=== PATIENT | male | born 1945 | race Caucasian/White ===

== ENCOUNTER 2023-01-16 08:02 | Day surgery (SDC) | payer MEDICARE ==
[2023-01-16 11:55] VITALS: BP 167/97
== END 2023-01-16 11:30 | disposition home or self-care (01) ==
LOC: RAD 08:02
PROVIDERS: ATTEND Neurological Surgery
PROC: 009U3ZX Drainage of Spinal Canal, Percutaneous Approach, Diagnostic (ICD-10-PCS; principal; 2023-01-16)
PROC: B01BZZZ Fluoroscopy of Spinal Cord (ICD-10-PCS; 2023-01-16)
DX: G91.2 (Idiopathic) normal pressure hydrocephalus (principal); Z88.6 Allergy status to analgesic agent; Z88.8 Allergy status to other drugs, medicaments and biological substances
CPT/HCPCS: 62270

== ENCOUNTER 2023-05-31 08:05 | Outpatient (CLI) | payer MEDICARE ==
[2023-05-31 09:35] LABS: Hematocrit 34.8 % (38.8-50.0); Hemoglobin 10.6 g/dL (13.5-17.5); Mean Corpuscular HGB CONC 30.5 g/dL (32.0-36.0); Mean Corpuscular Hemoglobin 23.6 pg (27.0-33.0); Mean Corpuscular Volume 77.3 fl (81.2-95.1); Mean Platelet Volume 9.5 fl (7.4-10.4); Platelet Count 310 10x3/uL (150-450); RBC Distribution Width 18.4 % (11.5-14.5); White Blood Cell (WBC) Count 6.7 10x3/uL (3.5-10.5)
[2023-05-31 09:39] LABS: Anion Gap 14 mmol/L (10-20); BUN (Urea Nitrogen) 13 mg/dL (8.4-25.7); Calc. Creatinine Clearance 0 mL/min (70-130); Calcium 9.6 mg/dL (7.8-10.44); Carbon Dioxide 25 mmol/L (23-31); Chloride 104 mmol/L (98-107); Estimated GFR 90; Glucose 106 mg/dL (83-110); Potassium 4.5 mmol/L (3.5-5.1); Sodium 138 mmol/L (136-145)
[2023-05-31 09:40] LABS: PTT 24.8 sec (22.0-33.0); Prothrombin Time 10.4 sec (9.5-12.1)
== END 2023-05-31 08:06 | disposition home or self-care (01) ==
LOC: LABBT 08:05
PROVIDERS: ATTEND Neurological Surgery
DX: Z01.812 Encounter for preprocedural laboratory examination (principal); G91.2 (Idiopathic) normal pressure hydrocephalus
CPT/HCPCS: 80048; 85027; 85610; 85730

== ENCOUNTER 2023-05-31 11:30 | Inpatient (IN) | payer MEDICARE ==
[2023-06-04] MEDS ORDERED: Promethazine HCl 25 MG/ML VIAL IM PRN ×2 (07:06→11:40)
[2023-06-04] MEDS ORDERED: Ondansetron PF 4 MG/2 ML Vial IVP PRN (07:06)
[2023-06-04] MEDS ORDERED: diphenhydrAMINE 50 MG/ML VIAL IVP PRN (07:06)
[2023-06-04] MEDS ORDERED: Vancomycin HCl 1 GM in Sodium Chloride 0.9% 250 ML 300 ML IVPB SCH (07:15)
[2023-06-04] MEDS ORDERED: Vancomycin 1 GM/200 ML (FROZEN) BAG ONE (07:27)
[2023-06-04] MEDS ORDERED: Vancomycin 1 GM in Premix Bag 1 BAG IVPB SCH (07:30)
[2023-06-04] MEDS ORDERED: Vancomycin HCl 20 MG, Gentamicin (PEDI) 8 MG, Admixture Fee 1 EACH in Sodium Chloride 0... FS SCH (07:45)
[2023-06-04] MEDS ORDERED: EPINEPHrine 1 MG/ML AMP ONE (07:53)
[2023-06-04] MEDS ORDERED: Lidocaine 1% (PF) 30 ML VIAL ONE (07:53)
[2023-06-04] MEDS ORDERED: Thrombin 5000 UNITS/5 ML VIAL ONE (07:53)
[2023-06-04] MEDS ORDERED: Vancomycin 1 GM VIAL ONE (07:53)
[2023-06-04] MEDS ORDERED: Vancomycin HCl 20 MG, Gentamicin (PEDI) 8 MG in Sodium Chloride 0.9% 4 ML IVPB SCH (08:00)
[2023-06-04] MEDS ORDERED: fentaNYL PF 100 MCG/2 ML SYRINGE ONE ×2 (09:25→11:50)
[2023-06-04] MEDS ORDERED: ePHEDrine Sulfate 50 MG/10 ML VIAL ONE (09:56)
[2023-06-04] MEDS ORDERED: PHENYLEPHRINE-NS 100 MCG/ML 10 ML SYRINGE ONE (09:56)
[2023-06-04] MEDS ORDERED: Rocuronium Bromide 10 MG/ML (10ML VIAL) ONE (09:56)
[2023-06-04] MEDS ORDERED: PROPOFOL 200 MG/20 ML VIAL ONE (09:56)
[2023-06-04] MEDS ORDERED: Ondansetron PF 4 MG/2 ML Vial ONE (09:56)
[2023-06-04] MEDS ORDERED: fentaNYL 50 mcg/mL 1 mL Vial ONE ×2 (10:47→10:51)
[2023-06-04] MEDS ORDERED: SUGAMMADEX SODIUM 200 MG/2 ML VIAL ONE (11:03)
[2023-06-04] MEDS ORDERED: PROPOFOL 20 ML ONE (11:20)
[2023-06-04] MEDS ORDERED: HYDROmorphone 2 MG/ML VIAL SLOW IVP PRN (11:40)
[2023-06-04] MEDS ORDERED: Ondansetron HCl/PF 4 MG/2 ML Vial IVP PRN (11:40)
[2023-06-04] MEDS: HYDROcodone/Acetaminophen 7.5/325 mg Tablet PO PRN ×2 (14:16→20:04)
[2023-06-04] MEDS ORDERED: Morphine 2 MG/ML VIAL SLOW IVP PRN (15:39)
[2023-06-04] MEDS: hydrALAZINE 20 MG/ML VIAL SLOW IVP PRN (15:46)
[2023-06-04] MEDS ORDERED: Glucagon 1 MG/ML KIT IM PRN (15:53)
[2023-06-04] MEDS ORDERED: HumaLOG 300 UNITS/3 ML VIAL SC PRN ×2 (15:53)
[2023-06-04] MEDS ORDERED: Dextrose 5% in Water 1,000 ML IV PRN (15:53)
[2023-06-04] MEDS ORDERED: Dextrose 50% Abboject 50 ML SYRINGE SLOW IVP PRN (15:53)
[2023-06-04] MEDS ORDERED: Losartan 25 MG TAB PO SCH (16:00)
[2023-06-04 16:25] LABS: #Eosinphils 0.1 thou/uL (0.0-0.7); #Monocytes 0.7 thou/uL (0.11-0.59); #Neutrophils 8.4 thou/uL (1.40-6.50); %Basophils 0.3 % (0.0-1.0); %Eosinophils 1.3 % (0.0-10.0); %Lymphocytes 7.9 % (21.0-51.0); %Monocytes 6.4 % (0.0-10.0); %Neutrophils 83.7 % (42.0-75.0); Hematocrit 33.9 % (42.0-52.0); Mean Corpuscular HGB CONC 29.5 g/dL (32.0-36.0); Mean Corpuscular Volume 81.3 fl (78.0-98.0); Platelet Count 256 10x3/uL (130-400); RBC Distribution Width 18.5 % (11.5-14.5); Red Blood Cell (RBC) Count 4.17 mill/uL (4.70-6.10); White Blood Cell (WBC) Count 10.1 10x3/uL (4.8-10.8)
[2023-06-04] MEDS ORDERED: Aspirin 81 mg Enteric Coated Tablet PO SCH (16:30)
[2023-06-04 16:46] LABS: Anion Gap 14 mmol/L (10-20); BUN (Urea Nitrogen) 10 mg/dL (8.4-25.7); Calc. Creatinine Clearance 87 mL/min (70-130); Calcium 8.8 mg/dL (7.8-10.44); Carbon Dioxide 21 mmol/L (23-31); Chloride 104 mmol/L (98-107); Estimated GFR 91; Glucose 120 mg/dL (83-110); Potassium 4.2 mmol/L (3.5-5.1); Sodium 135 mmol/L (136-145)
[2023-06-04] MEDS: Sodium Chloride 0.9% 1,000 ML IV SCH (17:09)
[2023-06-04] MEDS: Atorvastatin Calcium 40 MG TAB PO SCH (20:05)
[2023-06-04] MEDS: Acetaminophen 325 MG TAB PO PRN (20:05)
[2023-06-04] MEDS: metFORMIN 500 MG TAB PO SCH (20:05)
[2023-06-04] MEDS ORDERED: Tamsulosin HCl 0.4 MG CAP PO SCH (20:30)
[2023-06-04] MEDS: ALPRAZolam 0.25 MG TAB PO PRN (20:33)
[2023-06-05] MEDS: Sodium Chloride 0.9% 1,000 ML IV SCH (01:41)
[2023-06-05] MEDS: Acetaminophen 325 MG TAB PO PRN ×2 (06:08→15:36)
[2023-06-05 06:34] LABS: #Eosinphils 0.2 thou/uL (0.0-0.7); #Monocytes 0.6 thou/uL (0.11-0.59); #Neutrophils 5.1 thou/uL (1.40-6.50); %Basophils 0.3 % (0.0-1.0); %Eosinophils 2.9 % (0.0-10.0); %Lymphocytes 10.7 % (21.0-51.0); %Monocytes 8.4 % (0.0-10.0); %Neutrophils 77.2 % (42.0-75.0); Hematocrit 30.9 % (42.0-52.0); Hemoglobin 9.4 g/dL (14.0-18.0); Mean Corpuscular HGB CONC 30.4 g/dL (32.0-36.0); Mean Platelet Volume 10.1 fL (7.4-10.4); Platelet Count 245 10x3/uL (130-400); RBC Distribution Width 18.7 % (11.5-14.5); Red Blood Cell (RBC) Count 3.91 mill/uL (4.70-6.10); White Blood Cell (WBC) Count 6.7 10x3/uL (4.8-10.8)
[2023-06-05 06:58] LABS: Anion Gap 11 mmol/L (10-20); BUN (Urea Nitrogen) 10 mg/dL (8.4-25.7); Calc. Creatinine Clearance 8 mL/min (70-130); Calcium 8.9 mg/dL (7.8-10.44); Carbon Dioxide 27 mmol/L (23-31); Chloride 102 mmol/L (98-107); Estimated GFR 89; Glucose 117 mg/dL (83-110); Potassium 3.8 mmol/L (3.5-5.1); Sodium 136 mmol/L (136-145)
[2023-06-05] MEDS: Losartan 25 MG TAB PO SCH (09:07)
[2023-06-05] MEDS: Aspirin 81 mg Enteric Coated Tablet PO SCH (09:08)
[2023-06-05] MEDS: Tamsulosin HCl 0.4 MG CAP PO SCH (09:08)
[2023-06-05] MEDS: metFORMIN 500 MG TAB PO SCH ×2 (09:08→21:01)
[2023-06-05] MEDS: Acetaminophen/Codeine 30-300mg Tablet PO PRN ×2 (12:37→21:01)
[2023-06-05] MEDS: Benzocaine/Menthol 1 LOZ LOZ PO PRN ×2 (18:25→21:01)
[2023-06-05] MEDS: ALPRAZolam 0.25 MG TAB PO PRN (21:02)
[2023-06-05] MEDS: Atorvastatin Calcium 40 MG TAB PO SCH (21:02)
[2023-06-06] MEDS: Sodium Chloride 0.9% 1,000 ML IV SCH ×3 (00:44→09:11)
[2023-06-06] MEDS: hydrALAZINE 20 MG/ML VIAL SLOW IVP PRN (00:56)
[2023-06-06] MEDS: Acetaminophen/Codeine 30-300mg Tablet PO PRN (01:53)
[2023-06-06] MEDS: Acetaminophen 325 MG TAB PO PRN ×2 (03:55→13:49)
[2023-06-06] MEDS: Tamsulosin HCl 0.4 MG CAP PO SCH (05:57)
[2023-06-06] MEDS: Benzocaine/Menthol 1 LOZ LOZ PO PRN (05:58)
[2023-06-06 06:34] LABS: #Eosinphils 0.3 thou/uL (0.0-0.7); #Monocytes 0.7 thou/uL (0.11-0.59); #Neutrophils 6.9 thou/uL (1.40-6.50); %Basophils 0.1 % (0.0-1.0); %Eosinophils 2.9 % (0.0-10.0); %Lymphocytes 11.5 % (21.0-51.0); %Monocytes 8.3 % (0.0-10.0); %Neutrophils 76.8 % (42.0-75.0); Hematocrit 34.4 % (42.0-52.0); Hemoglobin 10.7 g/dL (14.0-18.0); Mean Corpuscular HGB CONC 31.1 g/dL (32.0-36.0); Mean Corpuscular Hemoglobin 24.3 pg (27.0-31.0); Mean Corpuscular Volume 78.2 fl (78.0-98.0); Mean Platelet Volume 10.1 fL (7.4-10.4); Platelet Count 278 10x3/uL (130-400); RBC Distribution Width 18.9 % (11.5-14.5); White Blood Cell (WBC) Count 8.9 10x3/uL (4.8-10.8)
[2023-06-06 06:54] LABS: Anion Gap 13 mmol/L (10-20); BUN (Urea Nitrogen) 8 mg/dL (8.4-25.7); Calc. Creatinine Clearance 8 mL/min (70-130); Calcium 9.5 mg/dL (7.8-10.44); Carbon Dioxide 23 mmol/L (23-31); Chloride 102 mmol/L (98-107); Estimated GFR 87; Glucose 127 mg/dL (83-110); Potassium 3.7 mmol/L (3.5-5.1); Sodium 134 mmol/L (136-145)
[2023-06-06] MEDS: metFORMIN 500 MG TAB PO SCH ×2 (09:11→21:18)
[2023-06-06] MEDS: Losartan 25 MG TAB PO SCH (09:11)
[2023-06-06] MEDS: Aspirin 81 mg Enteric Coated Tablet PO SCH (09:11)
[2023-06-06 10:16] LABS: Bacteria/HPF None Seen HPF (None Seen); Bilirubin Negative (Negative); Blood, Urine Negative (Negative); Clarity Clear (Clear); Glucose, Urine (Dipstick) 30 mg/dL (Negative); Ketone, Urine Negative (Negative); Leukocyte Negative Leu/uL (Negative); Nitrite Negative (Negative); Protein, Urine (Dipstick) Negative (Neg-Trace); Specific Gravity, Urine 1.009 (1.002-1.036); Squamous Epithelial None Seen HPF (0-3); Urobilinogen Normal mg/dL (Less than 2); WBC/HPF 0-3 HPF (0-3); pH, Urine 6.5 (5.0-9.0)
[2023-06-06] MEDS: ALPRAZolam 0.25 MG TAB PO PRN (21:18)
[2023-06-06] MEDS: Atorvastatin Calcium 40 MG TAB PO SCH (21:18)
[2023-06-07] MEDS: Sodium Chloride 0.9% 1,000 ML IV SCH (05:02)
[2023-06-07 06:19] LABS: #Eosinphils 0.3 thou/uL (0.0-0.7); #Monocytes 0.6 thou/uL (0.11-0.59); #Neutrophils 4.4 thou/uL (1.40-6.50); %Basophils 0.3 % (0.0-1.0); %Eosinophils 4.8 % (0.0-10.0); %Lymphocytes 15.8 % (21.0-51.0); %Monocytes 9.5 % (0.0-10.0); %Neutrophils 69.3 % (42.0-75.0); Hematocrit 30.7 % (42.0-52.0); Hemoglobin 9.5 g/dL (14.0-18.0); Mean Corpuscular HGB CONC 30.9 g/dL (32.0-36.0); Mean Corpuscular Hemoglobin 24.2 pg (27.0-31.0); Mean Corpuscular Volume 78.1 fl (78.0-98.0); Mean Platelet Volume 10.2 fL (7.4-10.4); Platelet Count 253 10x3/uL (130-400); RBC Distribution Width 18.5 % (11.5-14.5); Red Blood Cell (RBC) Count 3.93 mill/uL (4.70-6.10); White Blood Cell (WBC) Count 6.4 10x3/uL (4.8-10.8)
[2023-06-07 06:40] LABS: Anion Gap 12 mmol/L (10-20); BUN (Urea Nitrogen) 10 mg/dL (8.4-25.7); Calc. Creatinine Clearance 8 mL/min (70-130); Calcium 9.5 mg/dL (7.8-10.44); Carbon Dioxide 25 mmol/L (23-31); Chloride 102 mmol/L (98-107); Estimated GFR 90; Glucose 118 mg/dL (83-110); Potassium 3.6 mmol/L (3.5-5.1); Sodium 135 mmol/L (136-145)
[2023-06-07] MEDS: Tamsulosin HCl 0.4 MG CAP PO SCH (09:04)
[2023-06-07] MEDS: metFORMIN 500 MG TAB PO SCH (09:04)
[2023-06-07] MEDS: Aspirin 81 mg Enteric Coated Tablet PO SCH (09:04)
[2023-06-07] MEDS: Losartan 25 MG TAB PO SCH (09:05)
[2023-06-07 11:33] VITALS: BP 154/84; TEMP 98.4
== END 2023-06-07 13:20 | disposition home or self-care (01) | DRG 32 ==
LOC: SURG A 06-04 06:51
PROVIDERS: ADMIT Neurological Surgery; ATTEND Internal Medicine
PROC: 00160J6 Bypass Cerebral Ventricle to Peritoneal Cavity with Synthetic Substitute, Open Approach (ICD-10-PCS; principal; 2023-06-04)
DX: G91.2 (Idiopathic) normal pressure hydrocephalus (principal); N20.2 Calculus of kidney with calculus of ureter; E11.9 Type 2 diabetes mellitus without complications; I10 Essential (primary) hypertension; Z98.890 Other specified postprocedural states; Z88.8 Allergy status to other drugs, medicaments and biological substances; Z79.82 Long term (current) use of aspirin; Z79.899 Other long term (current) drug therapy; I25.10 Atherosclerotic heart disease of native coronary artery without angina pectoris; R33.9 Retention of urine, unspecified
CPT/HCPCS: 36415; 36416; 76770; 80048; 81001; 85025; 87086; C1750; C1889; J0171; J0360; J2001; J2272; J2405; J2704; J3010; J3370; J3370-JW

== ENCOUNTER 2023-06-09 20:13 | Emergency (ER) | payer MEDICARE ==
[2023-06-09 20:57] LABS: #Eosinphils 0.3 thou/uL (0.0-0.7); #Monocytes 0.7 thou/uL (0.11-0.59); #Neutrophils 6.8 thou/uL (1.40-6.50); %Basophils 0.3 % (0.0-1.0); %Eosinophils 2.8 % (0.0-10.0); %Lymphocytes 10.7 % (21.0-51.0); %Monocytes 8.2 % (0.0-10.0); %Neutrophils 77.8 % (42.0-75.0); Hematocrit 35.1 % (42.0-52.0); Mean Corpuscular HGB CONC 31.3 g/dL (32.0-36.0); Mean Corpuscular Hemoglobin 24.1 pg (27.0-31.0); Mean Platelet Volume 9.7 fL (7.4-10.4); Platelet Count 269 10x3/uL (130-400); RBC Distribution Width 18.3 % (11.5-14.5); Red Blood Cell (RBC) Count 4.56 mill/uL (4.70-6.10); White Blood Cell (WBC) Count 8.8 10x3/uL (4.8-10.8)
[2023-06-09 21:25] LABS: Troponin I 0.014 ng/mL (< 0.028)
[2023-06-09 21:28] LABS: AST (SGOT) 21 U/L (5-34); Albumin 4.2 g/dL (3.4-4.8); Alkaline Phosphatase 127 U/L (40-110); Anion Gap 13 mmol/L (10-20); BUN (Urea Nitrogen) 13 mg/dL (8.4-25.7); Bilirubin, Total 0.4 mg/dL (0.2-1.2); Calc. Creatinine Clearance 0 mL/min (70-130); Carbon Dioxide 25 mmol/L (23-31); Chloride 103 mmol/L (98-107); Estimated GFR 72; Globulin 3.3 g/dL (2.4-3.5); Glucose 126 mg/dL (83-110); Protein, Total 7.5 g/dL (5.8-8.1); Sodium 137 mmol/L (136-145)
[2023-06-09 22:40] LABS: ALT (SGPT) 17 U/L (8-55)
[2023-06-09] MEDS ORDERED: Losartan 25 MG TAB PO SCH (23:45)
== END 2023-06-10 00:42 | disposition home or self-care (01) ==
LOC: ERS 20:13
DX: I10 Essential (primary) hypertension (principal); M89.9 Disorder of bone, unspecified; G91.9 Hydrocephalus, unspecified; E11.9 Type 2 diabetes mellitus without complications; I50.9 Heart failure, unspecified; Z79.899 Other long term (current) drug therapy
CPT/HCPCS: 36415; 70450; 75809; 80053; 81001; 84484; 85025; 93005

== ENCOUNTER 2023-06-10 13:32 | Emergency (ER) | payer MEDICARE ==
[2023-06-10 14:57] LABS: Bacteria/HPF None Seen HPF (None Seen); Bilirubin Negative (Negative); Blood, Urine 2+ (Negative); CAUTI Indications for Culture Dysuria,urgency,freq; Clarity Clear (Clear); Glucose, Urine (Dipstick) >=1000 mg/dL (Negative); Ketone, Urine Negative (Negative); Leukocyte Negative Leu/uL (Negative); Nitrite Negative (Negative); Protein, Urine (Dipstick) 70 mg/dL (Neg-Trace); Specific Gravity, Urine 1.023 (1.002-1.036); Squamous Epithelial None Seen HPF (0-3); Urobilinogen Normal mg/dL (Less than 2); WBC/HPF 0-3 HPF (0-3); pH, Urine 5.5 (5.0-9.0)
[2023-06-10 14:58] LABS: RBC/HPF 21-50 HPF (0-3)
[2023-06-10 14:59] LABS: Urine Culture Reflex No No
[2023-06-10] MEDS ORDERED: Acetaminophen 500 MG TAB ONE (15:14)
== END 2023-06-10 17:51 ==
LOC: ERS 13:32
DX: R53.1 Weakness (principal); E11.9 Type 2 diabetes mellitus without complications; I50.9 Heart failure, unspecified; Z79.899 Other long term (current) drug therapy
CPT/HCPCS: 81001

== ENCOUNTER 2023-06-27 13:27 | Outpatient (CLI) | payer MEDICARE | END 2023-06-27 13:28 | disposition home or self-care (01) | LOC: CT 13:27 | PROVIDERS: ATTEND Neurological Surgery | DX: G91.9 Hydrocephalus, unspecified (principal); G93.89 Other specified disorders of brain; Z98.2 Presence of cerebrospinal fluid drainage device | CPT/HCPCS: 70450 ==